=== PATIENT | female | born 1995 | race Caucasian/White ===

== ENCOUNTER 2019-09-22 17:53 | Emergency (ER) | payer BC, SELFPAY ==
[2019-09-22 18:06] VITALS: BP 132/77; PULSE 97; RESP 16; TEMP 36.9; O2SAT 100
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
[2019-09-22] MEDS: predniSONE 20 MG TABLET 60 MG PO (18:39)
== END 2019-09-22 19:00 | disposition home or self-care (01) ==
PROVIDERS: Emergency Provider Nurse Practitioner Family
DX: L50.9 Urticaria, unspecified (principal)
CPT/HCPCS: 99203; G0463; J7512